=== PATIENT | female | born 1950 | race Caucasian/White ===

== ENCOUNTER 2024-07-22 21:16 | Emergency (ER) | payer MEDICARE, OTHER, SELFPAY ==
--- NOTE | ~2024-07-22 | CT_ITS ---
EXAMINATION: CT ABDOMEN AND PELVIS WITH CONTRAST CLINICAL INFORMATION: Abdominal pain. COMPARISON: February 09, 2019. TECHNIQUE: Multidetector volumetric images were obtained from the superior aspect of the liver through the pubic symphysis following administration 85 mL of Omnipaque 350 intravenous contrast. Sagittal and coronal reformatted images were obtained on the technologist's workstation. Oral contrast: No This CT examination was performed using dose optimization techniques as appropriate, variously including the following: *Automated exposure control *Adjustment of mA and/or kV according to patient size (this includes techniques or standardized protocols for targeted exams where dose is matched to indication/reason for exam; i.e. extremities or head) *Use of iterative reconstruction technique DLP: 353 mGy-cm FINDINGS: LUNG BASES: The visualized lung bases are unremarkable. LIVER, GALLBLADDER, AND BILIARY TREE: The liver is normal in size, shape, and attenuation. No focal hepatic lesion or biliary ductal dilatation is present. The gallbladder is unremarkable with no evidence of radiopaque gallstones, gallbladder wall thickening, or obvious pericholecystic inflammatory changes. PANCREAS: Unremarkable. SPLEEN: Unremarkable. ADRENAL GLANDS: Unremarkable. KIDNEYS AND URETERS: The kidneys are normal in size, shape, and attenuation. No hydronephrosis, hydroureter, or calculi seen. No perinephric stranding. There are mid to upper pole right-sided renal cysts measuring up to 1.4 cm. There is no hydronephrosis. BLADDER: Unremarkable. GASTROINTESTINAL TRACT: There is retained ascending and transverse colonic stool. ABDOMINAL WALL: No significant hernia is appreciated. LYMPH NODES: Normal. VASCULAR: Unremarkable. PELVIC VISCERA: There is a lobular heterogeneous mass within the right adnexa measuring 8.5 x 5 x 7.5 cm. Uterine fibroids are also noted. OSSEOUS STRUCTURES: There is grade 1 anterolisthesis of L3 over L4 and L4-L5. CT/CT abdomen pelvis w IV con IMPRESSION: 1. No acute abnormality in the abdomen or pelvis. 2. Right adnexal mass measuring 8.5 x 5 x 7.5 cm. Recommend pelvic ultrasound for further evaluation. 3. Grade 1 anterolisthesis of L3 over L4 and L4 over L5. Fleischner guidelines were followed. Electronically signed by: Jese Collins MD 07/23/2024 06:05 AM EDT
--- NOTE | ~2024-07-22 | US_ITS ---
EXAMINATION: US PELVIS CLINICAL INFORMATION: Pelvic mass. Postmenopausal. COMPARISON: CT abdomen/pelvis 07/23/2024 and 02/09/2019. TECHNIQUE: Ultrasound of the pelvis is performed using transabdominal transducer along with Doppler. FINDINGS: Anteverted uterus measuring 8.5 x 2.7 x 5.1 cm. Homogeneous endometrium measuring up to 0.3 cm in thickness. There is a large solid mass measuring 6.8 x 8.7 x 6 cm immediately adjacent to the right posterior uterine surface and right ovary, that is significantly larger than compared to 2019 were it measured up to 4.5 cm. The right ovary abuts the above-described mass, otherwise is normal in morphology measuring approximately 1.8 x 1.1 x 1.3 cm, 1.3 mL. Normal morphology of the left ovary measuring 2 x 1.1 x 1.7 cm, 2 mL. There is preserved flow on color Doppler to both ovaries at the moment of this examination. No free fluid. US/US pelvic complete IMPRESSION: Large solid mass centered in the right adnexal region inseparable from the uterus and right ovary, unclear origin. This is increased compared to 2019, and it is a worrisome finding in which malignancy cannot be excluded. Recommend surgical consultation and further characterization with pelvic MRI with and without intravenous contrast. Electronically signed by: Najma Rubio MD 07/23/2024 08:44 AM EDT
[2024-07-22 21:28] VITALS: BP 142/82; BP 156/63; PULSE 85; PULSE 87; RESP 18; TEMP 36.9; O2SAT 100; O2SAT 99; BMI 21.2
[2024-07-22 21:52] LABS: MANUAL DIFF FLAG NO
[2024-07-22 21:55] LABS: Basophils Absolute Auto 0.1 X10*3/uL (0.0-0.2); Basophils Percent Auto 0.5 % (0-2); Eosinophils Absolute Auto 0.2 X10*3/uL (0.0-0.4); Eosinophils Percent Auto 1.7 % (0-4); Hematocrit 32.9 % (37.0-47.0); Imm Gran Abs Auto 0.04 X10*3/uL (0.00-0.03); Imm Gran Pct Auto 0.4 % (0.0-0.4); Lymphocytes Absolute Auto 1.3 X10*3/uL (1.2-4.9); Lymphocytes Percent Auto 13.3 % (20-40); Mean Corpuscular HGB Conc 33.4 g/dl (31.0-35.0); Mean Corpuscular Hemoglobin 30.3 pg (27.0-33.0); Mean Corpuscular Volume 90.6 fL (80.0-98.0); Mean Platelet Volume 8.6 fL (9.4-12.3); Monocytes Absolute Auto 0.7 X10*3/uL (0.1-1.2); Monocytes Percent Auto 6.8 % (2-11); Neutrophils Absolute Auto 7.7 x10*3/uL (2.0-8.3); Neutrophils Percent Auto 77.3 % (45-73); Platelet Count 394 X10*3/uL (160-400); Red Blood Count 3.63 X10*6/uL (4.20-5.50); Red Cell Distribution Width 12.7 % (11.0-16.0)
[2024-07-22 22:01] LABS: Appearance Urine Clear; Color Urine Yellow; Glucose Urine UA Negative (Negative); Leukocyte Esterase Urine Small (1+) (Negative); Nitrite Urine Negative (Negative); PH 5.5 (5.0-9.0); Specific Gravity - Urine 1.015 (1.005-1.025); UMIC TRIGGER UACC YES; Urine Blood Trace (Negative); Urine Ketones Negative (Negative); Urine Protein Trace mg/dL (Neg-Trace)
[2024-07-22 22:06] LABS: Bacteria Urine None Seen (None Seen); Squamous Epithelial Cell Urine 0-2 /HPF (0-2); UACC Culture Trigger YES
[2024-07-22 22:10] LABS: Alanine Aminotransferase 12 U/L (0-31); Albumin Level 4.7 g/dL (3.5-5.0); Alkaline Phosphatase 74 U/L (39-117); Anion Gap 12 (12-20); Aspartate Amino Transferase 19 U/L (5-31); Bilirubin Total 0.2 mg/dL (0.0-1.0); Blood Urea Nitrogen 15 mg/dL (9-16); Calcium 9.5 mg/dL (8.4-10.2); Carbon Dioxide 25 mmol/L (22-29); Chloride 105 mmol/L (96-108); Creatinine Clr Calc Pharmacy 44.1; Estimated Glomerular Filt Rate > 60; Glucose Random 117 mg/dL (60-115); Sodium 138 mmol/L (135-145); Total Protein 7.6 g/dL (6.5-8.0)
[2024-07-22 22:32] LABS: Influenza A PCR NEGATIVE (Negative); Influenza B PCR NEGATIVE (Negative); Resp Syncy Virus RNA Qual PCR NEGATIVE (Negative); SARS COV2 PCR INHOUSE NEGATIVE (Negative)
[2024-07-23 01:37] VITALS: BP 156/76; PULSE 85; RESP 18; TEMP 36.7; O2SAT 98
--- NOTE | 2024-07-23 03:09 | ED.ABDPAIN ---
HPI - Abdominal Pain General Chief Complaint: Abdominal Pain Stated Complaint: rt hip pain Time Seen by Provider: 07/23/24 03:08 Source: patient Mode of arrival: ambulatory Limitations: no limitations History of Present Illness ED Provider: jamie DA SILVA narrative: Patient with no significant past medical history , complaining of pain in the right lower abdomen since yesterday getting worse nausea no urinary complaints no diarrhea no fever or chills also complaining of low back pain Related Data Allergies Allergy/AdvReac Type Severity Reaction Status Date / Time losartan [LOSARTAN] Allergy Unknown UNK Verified 07/22/24 21:34 Review of Systems Review of Systems Yes all other systems are reviewed and are negative [facility] Social History Social History Smoked in Last 30 Days: No Use of substances other than those prescribed or required for medical reasons: No Advance Directives: No Advance Directives Information Provided: Yes Physical Exam ED Vital Signs: Vital Signs - 24 hr 07/22/24 21:28 07/23/24 01:37 07/23/24 04:14 Temperature 98.4 F 98.1 F 98.6 F Pulse Rate 85 85 90 Respiratory Rate 18 18 18 Blood Pressure 156/63 H 156/76 H 144/72 H Pulse Oximetry 100 98 99 Oxygen Delivery Method Room Air Room Air BMI result Body Mass Index 21.2 Appearance: Alert. Oriented X3. No acute distress. Eyes: No pallor or icterus ENT: Pharynx normal. Oral Mucosa moist Neck: Normal inspection. Neck supple. CVS: Normal heart rate and rhythm. Pulses normal. Respiratory: No respiratory distress. Equal air entry bilateral, no wheezing/rales/rhonchi Abdomen: Soft , deep tenderness slight lower abdomen with guarding no rebound tenderness Bowel sounds are present, no mass palpable, no CVA tenderness Skin: Skin warm and dry. Normal skin color. Normal skin turgor. Extremities: No lower extremity edema. No calf tenderness Neuro: Oriented X 3. No motor deficit. Medical Decision Making Medical Decision Making [facility] Narrative: Patient's right lower quadrant tenderness workup showed 8 x 7 cm cyst on the right adnexal area will get ultrasound rule out ovarian tumor/cyst signed out Dr. Bonner pending ultrasound Differential Diagnosis Differential Diagnoses: The differential diagnosis associated with the presentation includes Appendicitis/ovarian cyst/diverticulitis Admission/Observation Consideration of admission/observation: Escalation of care including admission/observation considered Lab Data MDM Lab Attestation statement: I reviewed the patient's lab results. 07/22/24 21:44 07/22/24 21:44 Labs: Lab Results 07/22/24 Range/Units 21:44 WBC 10.0 (4.8-10.8) X10*3/uL RBC 3.63 L (4.20-5.50) X10*6/uL Hgb 11.0 L (12.0-16.0) g/dl Hct 32.9 L (37.0-47.0) % MCV 90.6 (80.0-98.0) fL MCH 30.3 (27.0-33.0) pg MCHC 33.4 (31.0-35.0) g/dl RDW 12.7 (11.0-16.0) % Plt Count 394 (160-400) X10*3/uL MPV 8.6 L (9.4-12.3) fL Immature Gran % (Auto) 0.4 (0.0-0.4) % Neut % (Auto) 77.3 H (45-73) % Lymph % (Auto) 13.3 L (20-40) % [place] % (Auto) 6.8 (2-11) % Eos % (Auto) 1.7 (0-4) % Baso % (Auto) 0.5 (0-2) % Lymph # (Auto) 1.3 (1.2-4.9) X10*3/uL [place] # (Auto) 0.7 (0.1-1.2) X10*3/uL Eos # (Auto) 0.2 (0.0-0.4) X10*3/uL Baso # (Auto) 0.1 (0.0-0.2) X10*3/uL Abs Immat Gran (auto) 0.04 H (0.00-0.03) X10*3/uL Absolute Neuts (auto) 7.7 (2.0-8.3) x10*3/uL Absolute Nucleated RBC 0.000 (0.0-0.012) X10*3/uL Nucleated RBC % (auto) 0.0 (0.0-0.2) /100WBC Sodium 138 (135-145) mmol/L Potassium 4.0 (3.3-5.1) mmol/L Chloride 105 (96-108) mmol/L Carbon Dioxide 25 (22-29) mmol/L Anion Gap 12 (12-20) BUN 15 (9-16) mg/dL Creatinine 0.83 (0.5-1.4) mg/dL Estim Creat Clear Calc 44.1 Estimated GFR > 60 Random Glucose 117 H (60-115) mg/dL Calcium 9.5 (8.4-10.2) mg/dL Total Bilirubin 0.2 (0.0-1.0) mg/dL AST 19 (5-31) U/L ALT 12 (0-31) U/L Alkaline Phosphatase 74 (39-117) U/L Total Protein 7.6 (6.5-8.0) g/dL Albumin 4.7 (3.5-5.0) g/dL Urine Color Yellow Urine Appearance Clear Urine pH 5.5 (5.0-9.0) Ur Specific [place] 1.015 (1.005-1.025) Urine Protein Trace (Neg-Trace) mg/dL Urine Glucose (UA) Negative (Negative) mg/dL Urine Ketones Negative (Negative) mg/dL Urine Blood Trace H (Negative) Urine Nitrite Negative (Negative) Ur Leukocyte Esterase Small (1+) H (Negative) Urine RBC 3-5 H (0-2) /HPF Urine WBC 11-20 H (0-5) /HPF Ur Squamous Epith Cells 0-2 (0-2) /HPF Urine Bacteria None Seen (None Seen) Hyaline Casts 3-5 (0-2) /LPF Influenza Type A (PCR) NEGATIVE (Negative) Influenza Type B (PCR) NEGATIVE (Negative) RSV RNA Qual (PCR) NEGATIVE (Negative) SARS-CoV-2 RNA (RT-PCR) NEGATIVE (Negative) Independent Interpretation I performed an independent interpretation of an: CT Scan Radiology Impression Discussion of test interpretation with radiology: I have reviewed the radiologist's reading. Radiologist Impression: CT/CT abdomen pelvis w IV con IMPRESSION: 1. No acute abnormality in the abdomen or pelvis. 2. Right adnexal mass measuring 8.5 x 5 x 7.5 cm. Recommend pelvic ultrasound for further evaluation. 3. Grade 1 anterolisthesis of L3 over L4 and L4 over L5. Fleischner guidelines were followed. Electronically signed by: Jese Collins MD 07/23/2024 06:05 AM EDT Medications Administered Discontinued Medications Generic Name Dose Route Start Last Admin Trade Name Freq PRN Reason Stop Dose Admin Sodium Chloride 1,000 mls @ 999 mls/hr 07/23/24 04:01 07/23/24 05:20 Ns IV 07/23/24 05:01 Infused .Q1H1M ONE Infusion Iohexol 85 ml 07/23/24 04:26 07/23/24 04:37 Iohexol 350 Mg/Ml 100 Ml Infus..Btl IV 07/23/24 04:27 85 ml ONCE ONE Administration Morphine Sulfate 2 mg 07/23/24 04:01 07/23/24 04:11 Morphine Sulfate 2 Mg/Ml Cartridge IVPUSH 07/23/24 04:02 2 mg ONCE ONE Administration Protocol Ondansetron HCl 4 mg 07/23/24 04:01 07/23/24 04:11 Ondansetron Hcl 4 Mg/2 Ml Vial IVPUSH 07/23/24 04:02 4 mg ONCE ONE Administration Discharge Plan Discharge Clinical Impression: Abdominal pain Print Language: Mongolian
[2024-07-23] MEDS: Morphine Sulfate 2 MG/ML CARTRIDGE IVPUSH (04:11)
[2024-07-23] MEDS: ondansetron HCL 4 MG/2 ML VIAL IVPUSH (04:11)
[2024-07-23] MEDS: 0.9 % Sodium Chloride 1,000 ML 999 ML IV (04:11)
[2024-07-23 04:14] VITALS: BP 144/72; PULSE 90; RESP 18; TEMP 37; O2SAT 99
[2024-07-23] MEDS: iohexoL 350 MG/ML 100 ML INFUS..BTL 85 ML IV (04:37)
--- NOTE | 2024-07-23 07:59 | PC.NURSE ---
patient daughter at bedside, upset about wait time, swearing at staff. patient and family educated on appropriate behavior while in the hospital . security and charge aware
[2024-07-23 09:29] VITALS: BP 172/71; PULSE 102; RESP 14; TEMP 36.8; O2SAT 99
[2024-07-23 09:48] VITALS: BP 174/80; PULSE 99; RESP 16; TEMP 36.8; O2SAT 97
== END 2024-07-23 09:50 | disposition home or self-care (01) ==
PROVIDERS: Emergency Provider Internal Medicine; PCP Internal Medicine
DX: R10.31 Right lower quadrant pain (principal); R11.2 Nausea with vomiting, unspecified; R10.2 Pelvic and perineal pain; Z79.899 Other long term (current) drug therapy; Z03.818 Encounter for observation for suspected exposure to other biological agents ruled out
CPT/HCPCS: 0241U; 36415; 74177; 76856; 80053; 81001; 81003; 85025; 87086; 96361; 96374; 96375; 99284; 99285; J2270; J2405; Q9967